=== PATIENT | male | born 1960 | race Caucasian/White ===

== ENCOUNTER → 2016-10-11 | Outpatient (REF) ==
[~2016-10-11] MED LIST: LORTAB 5/500 501 TAB PO; PRINZIDE 25 MG-1 TAB PO; ZYRTEC 10MG10 MG PO
== END ==
LOC: WSOH 16:04
DX: Z02.89 Encounter for other administrative examinations (principal)

== ENCOUNTER → 2016-12-05 | Outpatient (REF) | LOC: WSOH 16:30 | DX: Z02.89 Encounter for other administrative examinations (principal) ==

== ENCOUNTER 2018-06-08 09:15 | Day surgery (SDC) | payer OTHER ==
[~2018-06-08] VITALS: Ht 175.3 cm; Wt 72.8 kg
[2018-06-08 09:40] VITALS: BP 140/95; PULSE 84; TEMP 97.6
[2018-06-08 11:27] VITALS: BP 111/82; PULSE 82; TEMP 98.2
--- NOTE | 2018-06-08 11:27 | NUR ---
Patient returned to [facility]. Alert and oriented. Vital signs obtained, WNL. Patient denies any nausea or pain at this time. Requesting soda and jello tolerating well. [facility] within reach, will conitnue to monitor.
[2018-06-08 11:42] VITALS: BP 117/76; PULSE 76
--- NOTE | 2018-06-08 11:42 | NUR ---
Vital signs WNL. Patient requesting to use bathroom, abulated without difficulty. Tolerated food and drink well, no complaints of [place]. Call pichardo within reach will continue to monitor.
[2018-06-08 11:57] VITALS: BP 127/86; PULSE 73
--- NOTE | 2018-06-08 11:57 | NUR ---
Patient states he is feeling well, vital signs stable. Would like to go home once he speaks with physician. Will continue to monitor.
--- NOTE | 2018-06-08 12:15 | NUR ---
Discharge instructions reviewed with patient. Verbalized understanding, all questions answered.
--- NOTE | 2018-06-08 12:30 | NUR ---
Patient ambulated to [facility]. To be driven home by spouse Ratna.
== END 2018-06-08 12:30 | disposition home or self-care (01) ==
LOC: SDCO 09:15
DX: Z12.11 Encounter for screening for malignant neoplasm of colon (principal); Z86.010 Personal history of colon polyps; D12.2 Benign neoplasm of ascending colon; D12.3 Benign neoplasm of transverse colon; K57.30 Diverticulosis of large intestine without perforation or abscess without bleeding; K21.9 Gastro-esophageal reflux disease without esophagitis; I10 Essential (primary) hypertension; Z87.891 Personal history of nicotine dependence; R07.9 Chest pain, unspecified; Z79.899 Other long term (current) drug therapy
CPT/HCPCS: J2704; J3010; J7030